=== PATIENT | female | born 1985 ===

== ENCOUNTER 2017-07-03 09:25 | Emergency (ER) | payer OTHER ==
[2017-07-03 09:28] VITALS: BMI 25.0
[2017-07-03] MEDS ORDERED: Sodium Chloride 0.9% 1,000 ML IV STA (10:00)
[2017-07-03 10:23] LABS: BASO # 0.1 K/uL (0.0-0.2); BASO % 0.5 % (0.0-2.0); EOS # 0.1 K/uL (0.0-0.7); EOS % 1.1 % (0.0-4.0); HEMOGLOBIN 13.6 g/dL (12.0-16.0); LYMPH # 1.7 K/uL (1.0-4.3); LYMPH % 17.2 % (20.0-40.0); MEAN CELL VOLUME 89.2 fl (81.0-99.0); MEAN CORPUSCULAR HEMOGLOBIN 29.8 pg (27.0-31.0); MEAN CORPUSCULAR HGB CONC 33.4 g/dL (33.0-37.0); MONO # 0.7 K/uL (0.0-0.8); MONO % 7.5 % (0.0-10.0); NEUT # 7.2 K/uL (1.8-7.0); NEUT % 73.7 % (50.0-75.0); NRBC % 0.1 % (0.0-0.0); RBC 4.56 Mil/uL (3.80-5.20); RED CELL DISTRIBUTION WIDTH 13.3 % (11.5-14.5); WHITE BLOOD COUNT 9.7 K/uL (4.8-10.8)
--- NOTE | 2017-07-03 10:37 | ED PDOC ---
HPI: CCC, URI, Sore Throat Time Seen by Provider: 07/03/17 09:39 Chief Complaint (Nursing): Flu-like Symptoms Chief Complaint (Provider): [place] x 2 weeks, body pain and headache last night History Per: Patient History/Exam Limitations: no limitations Have you had recent travel within the past 21 days to any of the following countries: [place], [place], [place] or [place]?: No Onset/Duration Of Symptoms: Days Sick Contacts (Context): None Associated Symptoms: Cough, Myalgias. denies: Fever, Chills, Sore Throat, Sputum Ear Symptoms: Bilateral: None Additional Complaint(s): 31 yo female with no medical problems presents with body pain and headache. Pt states she has been fighting a cold on/off for a few weeks. Pt states she went to [place] and continued to have cough. PT was prescribed a cephalosporin in [facility] which she is still tkaing twice a day. Pt states today she flet very weak which prompted her visit. PT does not have PMD. Past Medical History Reviewed: Historical Data, Nursing Documentation, Vital Signs Vital Signs: Last Vital Signs Temp 97.4 F L 07/03/17 09:28 Pulse 80 07/03/17 09:28 Resp 17 07/03/17 09:28 BP 115/77 07/03/17 09:28 Pulse Ox 100 07/03/17 10:37 - Medical History PMH: No Chronic Diseases - Surgical History Surgical History: No Surg Hx - Family History Family History: States: No Known Family Hx - Home Medications Home Medications: Ambulatory Orders Medication Instructions Recorded Ondansetron ODT [Zofran ODT] 4 mg PO QID #20 odt 07/03/17 Oseltamivir [Tamiflu] 75 mg PO BID #10 cap 07/03/17 - Allergies Allergies/Adverse Reactions: Allergies Allergy/AdvReac Type Severity Reaction Status Date / Time No Known Allergies Allergy Verified 11/22/15 23:36 Physical Exam - Reviewed Nursing Documentation Reviewed: Yes Vital Signs Reviewed: Yes - Physical Exam Appears: Positive for: Well, Non-toxic, No Acute Distress Head Exam: Positive for: ATRAUMATIC, NORMAL INSPECTION, NORMOCEPHALIC Skin: Positive for: Normal Color, Warm, DRY Eye Exam: Positive for: Normal appearance ENT: Positive for: Normal ENT Inspection Neck: Positive for: Normal, Painless ROM Cardiovascular/Chest: Positive for: Regular Rate, Rhythm Respiratory: Positive for: CNT, Normal Breath Sounds Gastrointestinal/Abdominal: Positive for: Normal Exam, Bowel Sounds, Soft Back: Positive for: Normal Inspection Extremity: Positive for: Normal ROM Neurologic/Psych: Positive for: Alert, Oriented - Laboratory Results Result Diagrams: 07/03/17 10:10 07/03/17 10:10 - ECG O2 Sat by Pulse Oximetry: 100 Medical Decision Making Medical Decision Making: Pt nauseous in ER and reports continued body pain. Zofran and tylenol ordered. Disposition - Clinical Impression Clinical Impression: Influenza - Patient ED Disposition Is Patient to be Admitted: No Counseled Patient/Family Regarding: Diagnosis, Need For Followup, Rx Given - Disposition Disposition: Routine/Home Disposition Time: 12:45 Condition: GOOD Prescriptions: Ondansetron ODT [Zofran ODT] 4 mg PO QID #20 odt Oseltamivir [Tamiflu] 75 mg PO BID #10 cap Instructions: Flu, Adult (DC) Forms: [employer] [place] ([place]inese)
[2017-07-03 10:38] LABS: ALB/GLOB RATIO 1.2 (1.0-2.1); ALBUMIN 4.1 g/dL (3.5-5.0); ALT/SGPT 55 U/L (9-52); AST/SGOT 34 U/L (14-36); BLOOD UREA NITROGEN 10 mg/dl (7-17); CALCIUM 9.7 mg/dL (8.4-10.2); GFR AFRICAN-AMERICAN > 60; GFR NON-AFRICAN AMERICAN > 60
--- NOTE | 2017-07-03 11:00 | RAD ---
HISTORY: Cough x 2 weeks, no improvement with antibiotic COMPARISON: No prior study available for comparison TECHNIQUE: Chest PA and lateral FINDINGS: LUNGS: No active pulmonary disease. PLEURA: No significant pleural effusion identified. No pneumothorax apparent. CARDIOVASCULAR: Normal. OSSEOUS STRUCTURES: No significant abnormalities. VISUALIZED UPPER ABDOMEN: Normal. OTHER FINDINGS: None. IMPRESSION: No active disease.
[2017-07-03 13:11] VITALS: BP 128/78; PULSE 78; RESP 18; TEMP 98; O2SAT 98
== END 2017-07-03 13:24 | disposition home or self-care (01) ==
LOC: H.ER 09:25
DX: J11.1 Influenza due to unidentified influenza virus with other respiratory manifestations (principal)
CPT/HCPCS: 71046; 80053; 81025; 85025; 86790; 87804; 96374; 99282; J1885; J2405; J7040

== ENCOUNTER 2017-07-07 14:59 | Emergency (ER) | payer OTHER ==
[2017-07-07 14:59] VITALS: BMI 25.0
[2017-07-07 15:16] VITALS: O2SAT 100
[2017-07-07] MEDS ORDERED: Sodium Chloride 0.9% 1,000 ML IV STA (15:46)
--- NOTE | 2017-07-07 16:12 | ED PDOC ---
HPI: General Adult Time Seen by Provider: 07/07/17 15:25 Chief Complaint (Nursing): Weakness/Neurological Deficit Chief Complaint (Provider): Body pain, "rubbery legs" History Per: Patient History/Exam Limitations: no limitations Onset/Duration Of Symptoms: Days Have you had recent travel within the past 21 days to any of the following countries: [place], [place], [place] or [place]?: No Current Symptoms Are (Timing): Still Present Additional Complaint(s): Pt seen in Er on 06/2617 and by PMD yesterday for body pain, weakness. Pt states when she tries to stand she has "rubbery legs". Pt had labs completed today. CBC, CMP, TSH, urine are normal. Past Medical History Reviewed: Historical Data, Nursing Documentation, Vital Signs Vital Signs: Last Vital Signs Temp 98.2 F 07/07/17 15:10 Pulse 93 H 07/07/17 15:10 Resp 16 07/07/17 15:10 BP 113/81 07/07/17 15:10 Pulse Ox 100 07/07/17 16:13 - Medical History PMH: No Chronic Diseases - Surgical History Surgical History: No Surg Hx - Family History Family History: States: No Known Family Hx - Living Arrangements Living Arrangements: With Family - Social History Current smoker - smoking cessation education provided: No Alcohol: None Drugs: Denies - Immunization History Hx Tetanus Toxoid Vaccination: No - Home Medications Home Medications: Ambulatory Orders Medication Instructions Recorded Ondansetron ODT [Zofran ODT] 4 mg PO QID #20 odt 07/03/17 Oseltamivir [Tamiflu] 75 mg PO BID #10 cap 07/03/17 - Allergies Allergies/Adverse Reactions: Allergies Allergy/AdvReac Type Severity Reaction Status Date / Time No Known Allergies Allergy Verified 11/22/15 23:36 Review of Systems ROS Statement: Except As Marked, All Systems Reviewed And Found Negative Constitutional: Positive for: Weakness. Negative for: Fever, Chills Genitourinary Female: Negative for: Dysuria, Frequency Physical Exam - Reviewed Nursing Documentation Reviewed: Yes Vital Signs Reviewed: Yes - Physical Exam Appears: Positive for: Well, Non-toxic, No Acute Distress Head Exam: Positive for: ATRAUMATIC, NORMAL INSPECTION, NORMOCEPHALIC Skin: Positive for: Normal Color, Warm, DRY Eye Exam: Positive for: Normal appearance ENT: Positive for: Normal ENT Inspection Neck: Positive for: Normal, Painless ROM Cardiovascular/Chest: Positive for: Regular Rate, Rhythm Respiratory: Positive for: Normal Breath Sounds. Negative for: Accessory Muscle Use, Respiratory Distress Gastrointestinal/Abdominal: Positive for: Normal Exam, Bowel Sounds, Soft. Negative for: Tenderness Back: Positive for: Normal Inspection Extremity: Positive for: Normal ROM Neurologic/Psych: Positive for: Alert, Oriented - ECG O2 Sat by Pulse Oximetry: 100 Medical Decision Making Medical Decision Making: Pt seen by Dr. Bledsoe. Discussed follow-up with neurologist and historical manuscripts curator. Disposition - Clinical Impression Clinical Impression: Generalized weakness - Patient ED Disposition Is Patient to be Admitted: No Counseled Patient/Family Regarding: Diagnosis, Need For Followup - Disposition Referrals: [facility] [Outside] [facility] [Outside] Disposition: Routine/Home Disposition Time: 17:32 Condition: STABLE Additional Instructions: Please follow-up with Neurologist and historical manuscripts curator. Instructions: Generalized Weakness Forms: [employer] (Malay)
[2017-07-07 16:43] LABS: MAGNESIUM 2.1 MG/DL (1.6-2.3)
[2017-07-07 17:57] VITALS: BP 123/79; PULSE 64; RESP 18; TEMP 98
== END 2017-07-07 17:57 | disposition home or self-care (01) ==
LOC: H.ER 14:59
DX: R53.1 Weakness (principal)
CPT/HCPCS: 82550; 83735; 84100; 96360; 99282; J1885; J7040